=== PATIENT | male | born 1970 | race Caucasian/White ===

== ENCOUNTER 2018-01-14 17:01 | Emergency (ER) | payer MEDICAID ==
[~2018-01-14] VITALS: Ht 152.4 cm; Wt 72.6 kg
--- NOTE | 2018-01-14 17:01 | NUR ---
[facility]
[2018-01-14 17:03] VITALS: BP_SYST 111
--- NOTE | 2018-01-14 17:03 | NUR ---
Note monique in [facility] - 01/14/18 at 1704 by [email or web address] Patient to [place] [id number] manning for evaluation. Side rails up.
--- NOTE | 2018-01-14 17:03 | NUR ---
ER at bedside examining patient.
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
--- NOTE | 2018-01-14 18:07 | NUR ---
Patient transported to radiology via gurney, accompanied by rad staff.
--- NOTE | 2018-01-14 18:38 | NUR ---
Returned from radiology, back to [facility].
--- NOTE | 2018-01-14 18:45 | NUR ---
Dr. Jiang at bedside speaking with pt discussing xray results.
[2018-01-14] MEDS ORDERED: HYDROcodone/ACETAMIN 10-325 MG TAB PO ONE (19:00)
[2018-01-14] MEDS ORDERED: IBUPROFEN 800 MG TABLET PO ONE (19:00)
--- NOTE | 2018-01-14 19:08 | NUR ---
Pt medicated as ordered by Dr. Jiang; however pt has no ride home and was planning on biking back to his residence. Dr. Jiang made aware of situation and has given verbal orders to withhold administration of Echola and to ONLY give the Motrin 800mg. Pt tolerated well; will continue to monitor.
--- NOTE | 2018-01-14 19:15 | NUR ---
[facility] at bedside speaking with pt.
[2018-01-14 19:19] VITALS: BP_SYST 111
--- NOTE | 2018-01-14 19:19 | NUR ---
Patient given written and verbal discharge instructions and verbalizes understanding. ER MD discussed with patient the results and treatment provided. Patient in stable condition. ID arm band removed. Rx of Motrin & Blanch given. Patient educated on pain management and to follow up with PMD. Pain Scale 3/10. Opportunity for questions provided and answered. Medication side effect fact sheet provided.
== END 2018-01-14 19:19 | disposition home or self-care (01) ==
LOC: SED 17:01
DX: S52.502A Unspecified fracture of the lower end of left radius, initial encounter for closed fracture (principal); V19.3XXA Pedal cyclist (driver) (passenger) injured in unspecified nontraffic accident, initial encounter; Y93.I9 Activity, other involving external motion; Y92.89 Other specified places as the place of occurrence of the external cause; Y99.8 Other external cause status
CPT/HCPCS: 72170-TC; 73502; 99284